=== PATIENT | female | born 1990 | race Caucasian/White ===

== ENCOUNTER 2018-07-19 23:07 | Emergency (ER) | payer MEDICAID, OTHER ==
[2018-07-19] MEDS ORDERED: KETOROLAC 15 MG/1 ML SDV IVP ONE (23:31)
[2018-07-19] MEDS ORDERED: NS 1,000 ML IV ONE (23:31)
--- NOTE | 2018-07-19 23:38 | EDPHY ---
H & P Stated Complaint: Epigastric and chest pain, nausea, SOB, x30 min pt tearful Time Seen by Provider: 07/19/18 23:19 HPI/ROS: Chief Complaint: Chest pain HPI: 28-year-old woman had abrupt onset of left upper chest pain while driving home the car from [place] this evening. It hurts to take a deep breath. She is also complaining of some left upper abdominal pain. No nausea or vomiting. She did return from a trip to [facility] about a week and half ago. No leg pain or swelling. Pain is about an 8/10. It did her more lay back but that is improved. No fevers or chills. Has had mild nonproductive cough for the last couple days. She is not on oral contraceptives. She does not smoke. No family history of blood clotting disorders or coronary artery disease. Last normal menstrual period was 2 weeks ago normal. ROS: 10 systems were reviewed and were negative except those elements noted in the HPI. PMH: Denies Social History: No smoking, occasional alcohol, no recreational drug use Family History: non-contributory Physical Exam: Gen: Awake, Alert, No Distress HEENT: Nose: no rhinorrhea Eyes: PERRLA, EOMI Mouth: Moist mucosa Neck: Supple, no JVD Chest: Mild left upper chest tenderness in the 2nd and 3rd costal space, midclavicular line reproducing presenting complaint, lungs clear to auscultation Heart: S1, S2 normal, no murmur Abd: Soft, mild epigastric and left upper quadrant tenderness, no guarding Back: no CVA tenderness, no midline tenderness Ext: no edema, mild tenderness right calf, bilateral calfs are soft, equal circumference. Skin: no rash Neuro: CN II-XII intact, Sensation grossly intact, Strength 5/5 in bilateral upper and lower extremities - Personal History Current Tetanus/Diphtheria Vaccine: Unsure Current Tetanus Diphtheria and Acellular Pertussis (TDAP): Unsure Tetanus Vaccine Date: < 10 YEARS - Medical/Surgical History Hx Asthma: No Hx Chronic Respiratory Disease: No Hx Diabetes: No Hx Cardiac Disease: No Hx Renal Disease: No Hx Cirrhosis: No Hx Alcoholism: No Hx HIV/AIDS: No Hx Splenectomy or Spleen Trauma: No Other PMH: R wrist - Social History Smoking Status: Never smoked Constitutional: Initial Vital Signs Temperature (C) 36.5 C 07/19/18 23:09 Heart Rate 88 07/19/18 23:09 Respiratory Rate 20 07/19/18 23:09 Blood Pressure 147/93 H 07/19/18 23:09 O2 Sat (%) 100 07/19/18 23:09 O2 Delivery Mode Room Air Allergies/Adverse Reactions: No Known Allergies Allergy (Unverified 07/19/18 23:08) Home Medications: Medication Instructions Recorded NK [No Known Home Meds] 07/19/18 Medical Decision Making - Diagnostics EKG Interpretation: ECG time 12:02 a.m., sinus rhythm with a rate of 59, possible left atrial enlargement, no acute ST or T-wave changes. Imaging Results: CT scan of the chest is negative for PE. When finding of perhaps some mild airways disease. Study interpreted by Dr. Garcia. Imaging: Discussed imaging studies w/ scallop raker Radiologist ED Course/Re-evaluation: Patient is improved after IV Toradol. D-dimer mildly elevated. Will obtain CT scan of the chest rule out PE. ECG is normal. CT scan is negative for PE. Pain is improved. No evidence of acute cardiac or intrathoracic process. Symptoms consistent likely the chest wall pain. She has normal laboratory evaluations. Repeat examination is soft benign abdomen. Plan will be for discharge with follow-up with primary care physician. Alternate ibuprofen with acetaminophen. Return for any concerns. - Data Points Laboratory Results: Laboratory Results 07/19/18 23:45 07/19/18 23:45 07/19/18 07/19/18 07/19/18 23:45 23:45 23:45 WBC 11.69 10^3/uL H 10^3/uL (3.80-9.50) RBC 4.71 10^6/uL 10^6/uL (4.18-5.33) Hgb 14.3 g/dL g/dL (12.6-16.3) Hct 41.4 % % (38.0-47.0) MCV 87.9 fL fL (81.5-99.8) MCH 30.4 pg pg (27.9-34.1) MCHC 34.5 g/dL g/dL (32.4-36.7) RDW 12.2 % % (11.5-15.2) Plt Count 363 10^3/uL 10^3/uL (150-400) MPV 9.1 fL fL (8.7-11.7) Neut % (Auto) 59.8 % % (39.3-74.2) Lymph % (Auto) 24.6 % % (15.0-45.0) [place] % (Auto) 8.3 % % (4.5-13.0) Eos % (Auto) 6.0 % % (0.6-7.6) Baso % (Auto) 0.9 % % (0.3-1.7) Nucleat RBC Rel Count 0.0 % % (0.0-0.2) Absolute Neuts (auto) 6.99 10^3/uL H 10^3/uL (1.70-6.50) Absolute Lymphs (auto) 2.88 10^3/uL 10^3/uL (1.00-3.00) Absolute Monos (auto) 0.97 10^3/uL H 10^3/uL (0.30-0.80) Absolute Eos (auto) 0.70 10^3/uL H 10^3/uL (0.03-0.40) Absolute Basos (auto) 0.10 10^3/uL 10^3/uL (0.02-0.10) Absolute Nucleated RBC 0.00 10^3/uL 10^3/uL (0-0.01) Immature Gran % 0.4 % % (0.0-1.1) Immature Gran # 0.05 10^3/uL 10^3/uL (0.00-0.10) D-Dimer Sodium 138 mEq/L mEq/L (135-145) Potassium 3.8 mEq/L mEq/L (3.5-5.2) Chloride 108 mEq/L mEq/L (97-110) Carbon Dioxide 23 mEq/l mEq/l (22-31) Anion Gap 7 mEq/L mEq/L (6-14) BUN 13 mg/dL mg/dL (7-23) Creatinine 0.8 mg/dL mg/dL (0.6-1.0) Estimated GFR > 60 Glucose 88 mg/dL mg/dL (70-100) Calcium 9.8 mg/dL mg/dL (8.5-10.4) Total Bilirubin 0.3 mg/dL mg/dL (0.1-1.4) AST 30 IU/L IU/L (14-46) ALT 36 IU/L IU/L (9-52) Alkaline Phosphatase 63 IU/L IU/L (38-126) Total Protein 7.8 g/dL g/dL (6.3-8.2) Albumin 4.6 g/dL g/dL (3.5-5.0) Lipase 195 IU/L IU/L (23-300) Beta HCG, Qual NEGATIVE 07/19/18 23:45 WBC RBC Hgb Hct MCV MCH MCHC RDW Plt Count MPV Neut % (Auto) Lymph % (Auto) [place] % (Auto) Eos % (Auto) Baso % (Auto) Nucleat RBC Rel Count Absolute Neuts (auto) Absolute Lymphs (auto) Absolute Monos (auto) Absolute Eos (auto) Absolute Basos (auto) Absolute Nucleated RBC Immature Gran % Immature Gran # D-Dimer 0.51 ug/mLFEU H ug/mLFEU (0.00-0.50) Sodium Potassium Chloride Carbon Dioxide Anion Gap BUN Creatinine Estimated GFR Glucose Calcium Total Bilirubin AST ALT Alkaline Phosphatase Total Protein Albumin Lipase Beta HCG, Qual Medications Given: Discontinued Medications Sodium Chloride (Ns) 1,000 mls @ 0 mls/hr IV ONCE ONE; Wide Open PRN Reason: Protocol Stop: 07/19/18 23:32 Last Admin: 07/19/18 23:46 Dose: 1,000 mls Ketorolac Tromethamine (Toradol) 15 mg IVP EDNOW ONE Stop: 07/19/18 23:32 Last Admin: 07/19/18 23:46 Dose: 15 mg Ondansetron HCl (Zofran) 4 mg IVP EDNOW ONE Stop: 07/19/18 23:51 Last Admin: 07/20/18 00:09 Dose: Not Given Departure - Departure Disposition: Home, Routine, Self-Care Clinical Impression: Chest wall pain Condition: Good Instructions: Chest Wall Pain (ED) Additional Instructions: Take ibuprofen, 600 mg every 8 hr. You may alternate with acetaminophen, 1000 mg every 8 hr. Follow up with primary care physician in 4-5 days for re-evaluation if symptoms are not improving. Return emergency department for worsening chest pain, shortness of breath, fainting, or any other concerns. Referrals: Perla Rendon MD [[facility] Primary Care Provider] - As per Instructions
[2018-07-19] MEDS ORDERED: ONDANSETRON 4 MG/2 ML VIAL IVP ONE (23:50)
[2018-07-20] MEDS ORDERED: IOPAMIDOL (ISOVUE 370) 100 ML BTL IV ONE (00:09)
[2018-07-20 00:46] LABS: PLATELET COUNT 363 10^3/uL (150-400)
--- NOTE | 2018-07-20 01:21 | CPEKG ---
Test Reason : OPEN Blood Pressure : / mmHG Vent. Rate : 059 BPM Atrial Rate : 060 BPM P-R Int : 136 ms QRS Dur : 092 ms QT Int : 449 ms P-R-T Axes : 069 016 032 degrees QTc Int : 445 ms Sinus rhythm Probable left atrial enlargement Low voltage, precordial leads Confirmed by Akin Rebolledo ([id number] on 07/20/2018 1:20:46 AM Referred By: Confirmed By:Akin Rebolledo
[2018-07-20 01:28] VITALS: BP 109/79
== END 2018-07-20 01:31 | disposition home or self-care (01) ==
DX: R07.89 Other chest pain (principal); E86.9 Volume depletion, unspecified
CPT/HCPCS: 96374; J1885; J2405; Q9967